=== PATIENT | female | born 1985 | race Caucasian/White ===

== ENCOUNTER 2017-03-07 19:25 | Emergency (ER) | payer OTHER ==
--- NOTE | 2017-03-07 19:37 | ERNOTE ---
Lower Extremity HPI - Narrative Date of Service: 03/07/17 - General Lower Extremities Pain: 1st toe: left - bruising to base of left toe Time Seen by Provider: 03/07/17 19:29 Source: patient Exam Limitations: no limitations - Immun/Allergies/Home Medications Allergies/Adverse Reactions: Allergies Allergy/AdvReac Type Severity Reaction Status Date / Time Penicillins Allergy Unknown Verified 07/14/12 11:51 egg Allergy Verified 03/07/17 19:30 Home Medications: HOME MEDICATIONS Atenolol [Tenormin] 50 mg PO DAILY 07/14/12 [Last Taken 07/14/12 09:00] - History of Present Illness Narrative: 31-year-old female presents to the emergency room for a left toe injury. Patient states that she was opening the door to a walk-in freezer when the freezer caught her toe. Patient states this happened about 2:00 today that her work is aware of the incident. Patient complains of pain with flexion and she does have a limp when she walks Date (Duration): 03/07/17 Occurred: this afternoon Location of Incident: work Method of Injury: Reports: direct blow Loss of Consciousness: Reports: no loss of consciousness Modifying Factors - (Improves): Reports: rest Modifying Factors - (Worsens): Reports: movement Other Injuries: Reports: none Subsequent Symptoms: Denies: sensory loss, numbness, motor loss Review of Systems - Review of Systems Constitutional: Present: no symptoms reported EYE: Present: no symptoms reported ENT: Present: no symptoms reported Respiratory: Present: no symptoms reported Cardiology: Present: no symptoms reported Gastrointestinal/Abdominal: Present: no symptoms reported Genitourinary: Present: no symptoms reported Musculoskeletal: Present: See HPI, joint pain Skin: Present: See HPI, change in color Neurological: Present: no symptoms reported Endocrine: Present: no symptoms reported Hematologic/Lymphatic: Present: no symptoms reported Psych: Present: no symptoms reported All Other Systems: All systems neg except as marked - Patient's Past Medical History Patient History - Medical: Other - allergies Patient History - Cardiac/Respiratory: No pertinent hx Patient History - Cancer: No Hx of Cancer Patient History - Surgical Procedures: No surgical history Physical Exam - Physical Exam Narrative: patient left great toe is bruised at the base of the toe. , nail is in tact, area not swollen. good cap refill. ROM is WNL but tender General Appearance: Present: wd/wn, alert, no apparent distress Head Exam: Present: normal inspection, no evidence of injury Eye Exam: Normal inspection: bilateral Ears, Nose, Throat: Present: normal ENT inspection, normal pharynx Neck: Present: normal inspection, nontender Respiratory: Present: no respiratory distress, normal breath sounds, no accessory muscle use, chest nontender, lungs clear Cardiovascular/Chest: Present: regular rate, rhythm, no murmur, normal peripheral pulses Gastrointestinal/Abdominal: Present: normal bowel sounds, nontender, nondistended, soft, no organomegaly Back Exam: Present: normal inspection, normal range of motion, no vertebral tenderness Extremity Exam: Present: normal inspection, non-tender, normal range of motion, no edema Neurological Exam: Present: alert, oriented, normal mood/affect, no motor/ sensory deficits Skin Exam: Present: other - bruise to the base of the left great toe. Lymphatic Exam: Present: no adenopathy ED Progress - Vital Signs Patient's Vital Signs:: I have reviewed the patient's vital signs. - X-Ray X-Ray #1 X-Ray: toe Interpretation: Reviewed by me X-ray Comments: no acute fx observed - Progress/Reassessment Progress:: Improved Plan - Plan Plan: budy tape great toes and use a surgical shoe for comfort. patient is to follow up with PCP. Departure Clinical Impression: Toe contusion Qualifiers: Encounter type: initial encounter Toe: great toe Damage to nail status: without damage Laterality: left Qualified Code(s): S90.112A - Contusion of left great toe without damage to nail, initial encounter - Departure Disposition: Home Follow Up Needed Condition: Stable Instructions: Crush Injury, Fingers or Toes, [id number], How to [place] Tape Additional Instructions: Continue any previous home medications. Follow-up through primary care provider in the next 2-3 days. He may take [id number] pain medication as needed. Return to emergency room if symptoms change and is not able to be controlled. Referrals: Ophelia Becker FNP [Primary Care Provider] -
[2017-03-07] MEDS ORDERED: HYDROcodone/ACETAMINOPHEN 1 EACH TABLET ONE (19:40)
[2017-03-07] MEDS ORDERED: HYDROcodone/ACETAMINOPHEN 1 EACH TABLET PO ONE (19:40)
[2017-03-07 20:17] VITALS: BP 158/105
== END 2017-03-07 20:43 | disposition home or self-care (01) ==
LOC: ER 19:25
DX: S90.112A Contusion of left great toe without damage to nail, initial encounter (principal); W22.8XXA Striking against or struck by other objects, initial encounter; Y93.89 Activity, other specified; Y92.89 Other specified places as the place of occurrence of the external cause; Y99.0 Civilian activity done for income or pay